=== PATIENT | female | born 1970 | race Caucasian/White ===

== ENCOUNTER 2019-06-28 11:32 | Emergency (ER) | payer OTHER ==
[2019-06-28] MEDS ORDERED: SODIUM CHLORIDE 0.9% (FLUSH) 10 ML SYG IV PRN (11:35)
[2019-06-28] MEDS ORDERED: ONDANSETRON INJ 4 MG/2 ML VIAL IV ONE (11:35)
[2019-06-28] MEDS ORDERED: ASPIRIN TABLET 325 MG TAB PO ONE (11:35)
[2019-06-28] MEDS: NITROGLYCERIN 0.4 MG 25 EA TAB SL ONE ×2 (11:46→11:56)
--- NOTE | 2019-06-28 11:47 | ED.PDOC ---
History of Present Illness - General Chief Complaint: Chest Pain/[place] Stated Complaint: chest pain Time Seen by Provider: 06/28/19 11:35 Source: patient, RN notes reviewed, Vital Signs reviewed, old records Exam Limitations: no limitations - History of Present Illness Initial Comments: This is a 49-year-old female with history of diabetes, hypertension, seizure disorder, CAD with stent x1, presenting with intermittent chest pain for the past 2 days. She states the pain got markedly worse around 20 minutes ago. She denies any pain with exertion. She states it feels similar to her previous cardiac pain. She denies any radiation. She states the pain gets worse whenever she takes a deep breath. She denies any nausea/vomiting, no diaphoresis. 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 Allergies/Adverse Reactions: Allergies Prochlorperazine [From Compazine] Allergy (Verified 06/28/19 11:38) Promethazine [From Phenergan] Allergy (Verified 06/28/19 11:38) Sulfa Antibiotics Allergy (Verified 06/28/19 11:38) Home Medications: Ambulatory Orders Aspirin [Aspirin Adult Low Dose] 81 mg PO DAILY #30 tab 06/28/19 Duloxetine HCl [Cymbalta] 60 mg PO BID 06/28/19 Nitroglycerin 0.4 mg Tab [Nitrostat] 0.4 mg SL .Q5M PRN #1 bttl 06/28/19 Ondansetron Odt [Zofran ODT] 8 mg PO Q8H PRN #15 tab 06/28/19 Pantoprazole Tablet [Protonix] 40 mg PO DAILY #30 tab 06/28/19 Review of Systems - Review of Systems Constitutional: Denies: chills, fever EENTM: Denies: nose congestion, throat pain Respiratory: States: short of breath. Denies: cough Cardiology: States: chest pain. Denies: edema, palpitations Gastrointestinal/Abdominal: Denies: abdominal pain, diarrhea, nausea, vomiting Genitourinary: Denies: dysuria, frequency Musculoskeletal: Denies: joint pain, joint swelling, muscle stiffness Skin: Denies: lesions, rash Neurological: Denies: headache, paresthesia Endocrine: States: no symptoms reported Hematologic/Lymphatic: States: no symptoms reported Family Medical History - Family History Mother Family History: Unknown Physical Exam - Physical Exam General Appearance: Alert, Anxious, Obese - Appears older than stated age Eyes, Ears, Nose, Throat Exam: PERRL/EOMI, normal ENT inspection Neck: non-tender, supple, other - No JVD Respiratory: chest non-tender, lungs clear, normal breath sounds, no respiratory distress, no accessory muscle use Cardiovascular/Chest: normal peripheral pulses, regular rate, rhythm, no edema, no gallop Peripheral Pulses: radial,right: 2+, radial,left: 2+, dorsalis pedis,right: 2+, dorsalis pedis,left: 2+ Gastrointestinal/Abdominal: soft, tenderness - Midepigastric, no right upper quadrant tenderness, negative Bennett sign. Extremity: non-tender, normal inspection, no pedal edema, no calf tenderness Neurologic: no motor/sensory deficits, alert, normal mood/affect, oriented x 3 Skin Exam: normal color, warm/dry Progress - Progress Progress: 06/28/19 11:53 Old records reviewed. No previous ED visits. No prior EKGs for comparison. 06/28/19 12:31 Rechecked. Pain improved. Patient now states she was having symptoms of GERD last night after eating dinner. She has longstanding history of GERD. Will give GI cocktail. 06/28/19 14:27 Rechecked. Completely pain-free. Patient states pain completely resolved with GI cocktail. Her pain seems to be more localized to the epigastric area, EKG is nonischemic, troponins negative x2. Although her heart score is 4, I feel very strongly this pain and she presented with today is noncardiac in nature and likely related to gastritis versus GERD. I recommended a bland diet, will start Protonix. Will give referral to cardiology for outpatient follow-up since she does have a history of stents before in the past. We will also start low-dose aspirin due to history of CAD and diabetes. Strict warnings given to the return to the emergency room for worsening pain, shortness of breath, fever, intractable vomiting, or any other concerns MDM: Differential diagnoses include ACS, unstable angina, stable angina, GERD/reflux, pancreatitis, gallstones. Her pain is localized to the epigastric area primarily, tender on exam. LFTs/lipase are normal. EKG with a right bundle branch block, no other acute ischemic changes noted. Her troponins are negative x2. She got complete relief of her pain with a GI cocktail. She does have a heart score of 4, but all evidence points to GI pathology, very low suspicion for ischemic chest pain. - Results/Orders Results/Orders: EKG interpreted by me at 11:42 AM. Normal sinus rhythm, rate 62, right bundle branch block, no ST segment elevations or depression Chest x-ray reviewed personally by me at 11:50 AM. No infiltrate, no pneumothorax, no acute process. Radiology department having issues with her dictation software at this time ([id number]). Dr. Saldana, radiologist, called to give verbal report on chest x-ray, no acute process 06/28/19 11:35 IV Care:Saline Lock per Protoc QSHIFT Telemetry .ONCE Sodium Chloride 0.9% (Flush) [Saline Flush Syringe] 10 ml IV PRN PRN EKG Stat Pulse Ox Stat Chest,1 View [RAD] Stat 06/28/19 11:36 Pulse Oximetry Assessment DAILY Laboratory Results - last 24 hr 06/28/19 06/28/19 06/28/19 11:50 11:50 11:50 WBC 7.4 RBC 4.88 Hgb 15.2 Hct 44.9 MCV 92.1 MCH 31.1 H MCHC 33.8 RDW 13.9 Plt Count 238 MPV 8.2 Absolute Neuts (auto) 3.50 Absolute Lymphs (auto) 2.90 Absolute Monos (auto) 0.50 Absolute Eos (auto) 0.40 Absolute Basos (auto) 0.10 Neutrophils % 47.3 Lymphocytes % 38.9 Monocytes % 7.3 Eosinophils % 5.2 H Basophils % 1.3 D-Dimer, Quantitative < 131 L Sodium 140 Potassium 3.9 Chloride 110 Carbon Dioxide 24 Anion Gap 9.9 L BUN 11 Creatinine 0.68 BUN/Creatinine Ratio 16.2 Random Glucose 99 Serum Osmolality 278.8 Calcium 8.8 Total Bilirubin 0.5 AST 18 ALT 15 Alkaline Phosphatase 60 Troponin I B-Natriuretic Peptide 61.3 Serum Total Protein 7.5 Albumin 3.7 Globulin 3.8 H Albumin/Globulin Ratio 1.0 L Lipase 41 06/28/19 06/28/19 11:50 13:48 WBC RBC Hgb Hct MCV MCH MCHC RDW Plt Count MPV Absolute Neuts (auto) Absolute Lymphs (auto) Absolute Monos (auto) Absolute Eos (auto) Absolute Basos (auto) Neutrophils % Lymphocytes % Monocytes % Eosinophils % Basophils % D-Dimer, Quantitative Sodium Potassium Chloride Carbon Dioxide Anion Gap BUN Creatinine BUN/Creatinine Ratio Random Glucose Serum Osmolality Calcium Total Bilirubin AST ALT Alkaline Phosphatase Troponin I < 0.02 < 0.02 B-Natriuretic Peptide Serum Total Protein Albumin Globulin Albumin/Globulin Ratio Lipase MARISSA CISNEROS DO #[id number] Departure - Departure Clinical Impression: Acute chest pain, Acute epigastric pain Acute gastritis Qualifiers: Gastritis type: unspecified gastritis Gastritis bleeding: without bleeding Qualified Code(s): K29.00 - Acute gastritis without bleeding Disposition: Discharge to Home or Self Care Condition: Good Departure Forms: ED Discharge - Pt. Copy, Patient Portal Self Enrollment Instructions: DI for Chest Pain, Gastritis, Ulcer and Gastritis Diet Referrals: SRINIVAS LOVE MD [Consulting Staff] - 1-2 Weeks ZIYAD CLAUDIO [Referring] - 1-2 Weeks Prescriptions: Aspirin [Aspirin Adult Low Dose] 81 mg PO DAILY #30 tab Nitroglycerin 0.4 mg Tab [Nitrostat] 0.4 mg SL .Q5M PRN #1 bttl PRN Reason: Chest Pain Ondansetron Odt [Zofran ODT] 8 mg PO Q8H PRN #15 tab PRN Reason: Nausea Pantoprazole Tablet [Protonix] 40 mg PO DAILY #30 tab Home Medications: Ambulatory Orders Aspirin [Aspirin Adult Low Dose] 81 mg PO DAILY #30 tab 06/28/19 Duloxetine HCl [Cymbalta] 60 mg PO BID 06/28/19 Nitroglycerin 0.4 mg Tab [Nitrostat] 0.4 mg SL .Q5M PRN #1 bttl 06/28/19 Ondansetron Odt [Zofran ODT] 8 mg PO Q8H PRN #15 tab 06/28/19 Pantoprazole Tablet [Protonix] 40 mg PO DAILY #30 tab 06/28/19
[2019-06-28] MEDS ORDERED: ALUM & MAG HYDROX-SIMETHICONE 30 ML, LIDOCAINE VISCOUS 2% 15 ML PO ONE ×2 (12:32)
[2019-06-28] MEDS ORDERED: LIDOCAINE HCL 2% (MOUTH-THROAT) 15 ML UD ONE (12:37)
[2019-06-28] MEDS ORDERED: ALUM & MAG HYDROX-SIMETHICONE 30 ML UD ONE (12:37)
[2019-06-28 14:17] VITALS: TEMP 98
[2019-06-28 15:09] VITALS: BP 126/76; O2SAT 98
--- NOTE | 2019-06-28 15:10 | RAD ---
EXAM DESCRIPTION: Chest,1 View CLINICAL HISTORY: chest pain, SOB COMPARISON: None available FINDINGS: The cardiomediastinal silhouette is unremarkable. There is no airspace consolidation or pleural effusion. The bronchovascular markings are within normal limits, and the lungs are not hyperinflated. There is no pneumothorax or acute fracture. Old healed left clavicular fracture. IMPRESSION: Negative exam. Electronically signed by: Clovis Saldana MD 06/28/2019 3:09 PM CDT
== END 2019-06-28 14:42 | disposition home or self-care (01) ==
LOC: ER 11:32
DX: R07.9 Chest pain, unspecified (principal); R10.13 Epigastric pain; K29.00 Acute gastritis without bleeding; E11.9 Type 2 diabetes mellitus without complications; I10 Essential (primary) hypertension; G40.909 Epilepsy, unspecified, not intractable, without status epilepticus; Z95.5 Presence of coronary angioplasty implant and graft
CPT/HCPCS: 36415; 71045; 80053; 83690; 83880; 84484; 85025; 85379; 93005; J2405

== ENCOUNTER → 2019-07-18 | Outpatient (CLI) | payer OTHER ==
--- NOTE | 2019-07-23 15:22 | MAM ---
EXAM DESCRIPTION: 3D Screening BILATERAL : Digital Mammography. CLINICAL HISTORY: 49 years Female ANNUAL SCREENING . No complaints. No personal or family history of breast cancer. Menarche age 16. Childbirth age 21. Menopause age 35. No HRT.. Lifetime risk of developing breast cancer (Tyrer-Cuzick model)(%): 7.5. COMPARISON: Baseline study at this facility. No prior reports available. TECHNIQUE: Bilateral CC and MLO projection full-field images, digital tomosynthesis mammographic technique. Bilateral digital 2-D full-field MLO images. CAD available for 2-D images. FINDINGS: The breast parenchymal density pattern is: Scattered areas of fibroglandular density. No skin thickening or nipple retraction. Circumscribed mass density approximately 1 cm from the nipple at the 1:30 position of the retroareolar left breast. No associated microcalcifications. Solitary microcalcifications bilaterally. No focal, stellate mass or density, focal asymmetry , and no suspicious microcalcifications right breast. IMPRESSION: Cyst versus solid circumscribed lesion. BI-RADS CATEGORY: 0 - INCOMPLETE- Need additional imaging evaluation. RECOMMENDATIONS: FOLLOW-UP: Recall for additional imaging: Directed ultrasound retroareolar left breast.. Written communication concerning the IMPRESSION and Follow-up, will be mailed to the patient and referring health care provider. Electronically signed by: Reed Carlos MD 07/23/2019 3:20 PM CDT
== END ==
LOC: LAB.O 10:39
PROVIDERS: ATTEND Family Medicine
DX: Z12.31 Encounter for screening mammogram for malignant neoplasm of breast (principal); I10 Essential (primary) hypertension; E78.5 Hyperlipidemia, unspecified; E11.9 Type 2 diabetes mellitus without complications; R53.83 Other fatigue

== ENCOUNTER → 2019-07-23 | Outpatient (CLI) | payer OTHER | LOC: YCFC.O 09:53 | PROVIDERS: ATTEND Nurse Practitioner | DX: Z72.51 High risk heterosexual behavior (principal) ==

== ENCOUNTER 2019-07-26 10:53 | Emergency (ER) | payer OTHER ==
[2019-07-26] MEDS ORDERED: diphenhydrAMINE HCL 50 MG/ML VIAL IM ONE (11:09)
[2019-07-26] MEDS ORDERED: DEXAMETHASONE INJ 10 MG/ML VIAL IM ONE (11:09)
[2019-07-26 11:10] VITALS: TEMP 98.1
--- NOTE | 2019-07-26 11:14 | ED.PDOC ---
History of Present Illness - General Chief Complaint: Bite: Animal/Insect/Human Stated Complaint: bee sting Time Seen by Provider: 07/26/19 11:08 Source: patient, RN notes reviewed, Vital Signs reviewed Exam Limitations: no limitations - History of Present Illness Initial Comments: Patient is a 49-year-old -[place] female who presents with complaints of right wrist pain at the site of a bee sting. Patient states she is allergic to bee stings. The pain is throbbing and stinging in nature. It is severe intensity. It is nonradiating. It is worse with palpation or movement. Nothing makes it better. Occurred: just prior to arrival Severity: severe Pain Location: upper extremity - Right wrist Method of Injury: other - Wasp sting Improving Factors: nothing Worsening Factors: movement Loss of Consciousness: no loss of consciousness Associated Symptoms (Fall): denies symptoms Allergies/Adverse Reactions: Allergies Prochlorperazine [From Compazine] Allergy (Verified 07/26/19 11:10) Promethazine [From Phenergan] Allergy (Verified 07/26/19 11:10) Sulfa Antibiotics Allergy (Verified 07/26/19 11:10) Home Medications: Ambulatory Orders Aspirin [Aspirin Adult Low Dose] 81 mg PO DAILY #30 tab 06/28/19 Duloxetine HCl [Cymbalta] 60 mg PO BID 06/28/19 Nitroglycerin 0.4 mg Tab [Nitrostat] 0.4 mg SL .Q5M PRN #1 bttl 06/28/19 Ondansetron Odt [Zofran ODT] 8 mg PO Q8H PRN #15 tab 06/28/19 Pantoprazole Tablet [Protonix] 40 mg PO DAILY #30 tab 06/28/19 Methylprednisolone [Medrol Dose Serge] 4 mg PO DAILY 6 Days #21 tab 07/26/19 Review of Systems - Review of Systems Constitutional: States: no symptoms reported, see HPI. Denies: chills, fever, malaise EENTM: States: no symptoms reported. Denies: throat pain, throat swelling Respiratory: States: no symptoms reported. Denies: cough, short of breath, stridor, wheezing Cardiology: States: no symptoms reported. Denies: chest pain, palpitations Gastrointestinal/Abdominal: States: no symptoms reported. Denies: abdominal pain, diarrhea, nausea, vomiting Genitourinary: States: no symptoms reported Musculoskeletal: States: no symptoms reported. Denies: back pain, neck pain Skin: States: rash Neurological: States: no symptoms reported. Denies: tingling, tremors, weakness Endocrine: States: no symptoms reported Hematologic/Lymphatic: States: no symptoms reported All other Systems: Reviewed and Negative Past Medical History (General) - Patient Medical History Hx Seizures: Yes Hx Asthma: Yes Hx of COPD: Yes Hx Cardiac Disorders: Yes - stent Hx Congestive Heart Failure: No Hx Hypertension: Yes - Vaccination History Hx Influenza Vaccination: No Hx Pneumococcal Vaccination: No Family Medical History - Family History Mother Family History: Unknown Physical Exam - Physical Exam General Appearance: Alert, Anxious, Obvious distress, Well Developed, Well Groomed, Well Hydrated, Well Nourished Head Injury: no evidence of injury Eye Exam: bilateral normal ENT Exam: hearing grossly normal, no dental injury Neck Exam: non-tender, full range of motion, normal alignment, normal inspection, other - No stridor Cardiovascular/Respiratory: regular rate, rhythm, no M/R/G, normal peripheral pulses, no JVD, normal breath sounds, no respiratory distress Gastrointestinal/Abdominal: normal bowel sounds, non tender, soft, no orga nomegaly, no pulsatile mass Back Exam: normal inspection, no CVA tenderness, no vertebral tenderness Extremity Exam: no evidence of injury, normal range of motion, non-tender Neurologic: court registry officer II-XII nml as tested, no motor/sensory deficits, alert, normal mood/affect, oriented x 3 Skin Exam: normal color, warm/dry - [place] Coma Score Best Eye Response ([place]): (4) open spontaneously Best Verbal Response (Janine): (5) oriented Best Motor Response ([place]): (6) obeys commands Janine Total: 15 Progress - Progress Progress: Differential diagnosis: Bee sting, wasp sting, puncture wound, allergic reaction among others. 07/26/19 12:22 Patient is doing much better after the IM Benadryl and IM Decadron. Plan on discharge home with a prescription for a Medrol Dosepak which she can start tomorrow. I discussed this plan of care with the patient and she voices understanding and agreement with the plan of care. Rm Burnham M.D. #[id number] Departure - Departure Clinical Impression: Wasp sting Qualifiers: Encounter type: initial encounter Injury intent: accidental or unintentional Qualified Code(s): T63.461A - Toxic effect of venom of wasps, accidental (unintentional), initial encounter Allergic reaction Qualifiers: Encounter type: initial encounter Qualified Code(s): T78.40XA - Allergy, unspecified, initial encounter Time of Disposition: 12:23 Disposition: Discharge to Home or Self Care Condition: Good Departure Forms: ED Discharge - Pt. Copy, Patient Portal Self Enrollment Instructions: DI for Insect Bites and Stings Diet: resume usual diet Activity: increase activity as tolerated Referrals: Gopal Viveros MD [Primary Care Provider] - 1-5 Days Prescriptions: Methylprednisolone [Medrol Dose Serge] 4 mg PO DAILY 6 Days #21 tab Home Medications: Ambulatory Orders Aspirin [Aspirin Adult Low Dose] 81 mg PO DAILY #30 tab 06/28/19 Duloxetine HCl [Cymbalta] 60 mg PO BID 06/28/19 Nitroglycerin 0.4 mg Tab [Nitrostat] 0.4 mg SL .Q5M PRN #1 bttl 06/28/19 Ondansetron Odt [Zofran ODT] 8 mg PO Q8H PRN #15 tab 06/28/19 Pantoprazole Tablet [Protonix] 40 mg PO DAILY #30 tab 06/28/19 Methylprednisolone [Medrol Dose Serge] 4 mg PO DAILY 6 Days #21 tab 07/26/19
[2019-07-26 12:34] VITALS: BP 154/79; O2SAT 99
== END 2019-07-26 12:33 | disposition home or self-care (01) ==
LOC: ER 10:53
DX: T63.461A Toxic effect of venom of wasps, accidental (unintentional), initial encounter (principal); T78.40XA Allergy, unspecified, initial encounter; I10 Essential (primary) hypertension; J44.9 Chronic obstructive pulmonary disease, unspecified; Z95.5 Presence of coronary angioplasty implant and graft; Z79.82 Long term (current) use of aspirin; Y92.9 Unspecified place or not applicable
CPT/HCPCS: J1100; J1200

== ENCOUNTER → 2019-07-31 | Outpatient (CLI) | payer OTHER | LOC: YCFC.O 11:21 | PROVIDERS: ATTEND Family Medicine | DX: A59.00 Urogenital trichomoniasis, unspecified (principal) ==